=== PATIENT | female | born 1995 | race Two or more races ===

== ENCOUNTER 2016-08-21 07:30 | Emergency (ER) | payer BC ==
[2016-08-21 08:41] LABS: ABSOLUTE EOSINOPHILS # (AUTO) 0.1 10^3/uL (0.0-0.6); ABSOLUTE LYMPHOCYTES (AUTO) 1.3 10^3/uL (0.5-4.7); ABSOLUTE MONOCYTES (AUTO) 0.5 10^3/uL (0.1-1.4); ABSOLUTE NEUT (AUTO) 3.2 10^3/uL (1.7-8.2); BASOPHILS % (AUTO) 0.5 % (0-2); EOSINOPHILS % (AUTO) 2.4 % (0-6); HEMOGLOBIN 12.2 g/dL (12.0-15.5); HGB HCT DIFFERENCE -0.4; LYMPHOCYTES % (AUTO) 25.7 % (13-45); MEAN CORPUSCULAR HEMOGLOBIN 28.3 pg (27.0-33.4); MEAN CORPUSCULAR VOLUME 86 fl (80-97); MONOCYTES % (AUTO) 9.2 % (3-13); RED BLOOD COUNT 4.32 10^6/uL (3.72-5.28); SEGMENTED NEUTROPHILS % (AUTO) 62.2 % (42-78); WHITE BLOOD COUNT 5.1 10^3/uL (4.0-10.5)
[2016-08-21 09:13] LABS: ALANINE AMINOTRANSFERASE 24 U/L (9-52); ALBUMIN 4.1 g/dL (3.5-5.0); ALKALINE PHOSPHATASE 63 U/L (38-126); ANION GAP 11 (5-19); ASPARTATE AMINO TRANSFERASE 19 U/L (14-36); BILIRUBIN,TOTAL 0.5 mg/dL (0.2-1.3); BLOOD UREA NITROGEN 13 mg/dL (7-20); CALCIUM 9.1 mg/dL (8.4-10.2); CARBON DIOXIDE 27 mmol/L (22-30); CHLORIDE 103 mmol/L (98-107); CREATININE RESULT 0.51 mg/dL (0.52-1.25); GLUCOSE 93 mg/dL (75-110); POTASSIUM 3.8 mmol/L (3.6-5.0); SODIUM 141.3 mmol/L (137-145); TOTAL PROTEIN 7.1 g/dL (6.3-8.2)
[2016-08-21 09:14] LABS: ALCOHOL < 10 mg/dL (NONE DETECTED)
[2016-08-21 09:41] LABS: URINE BARBITURATES SCREEN NEGATIVE; URINE METHADONE SCREEN NEGATIVE; URINE OPIATES LOW NEGATIVE; URINE PHENCYCLIDINE SCREEN NEGATIVE
[2016-08-21 10:39] LABS: APPEARANCE,URINE CLEAR; BILIRUBIN,URINE NEGATIVE (NEGATIVE); GLUCOSE, URINE NEGATIVE (NEGATIVE); KETONES,URINE NEGATIVE (NEGATIVE); LEUKOCYTE ESTERASE,URINE NEGATIVE (NEGATIVE); NITRITE,URINE NEGATIVE (NEGATIVE); PROTEIN,URINE NEGATIVE (NEGATIVE); UROBILINOGEN,URINE NEGATIVE mg/dL (<2.0)
--- NOTE | 2016-08-21 12:08 | ER Document Report ---
ED Psych Disorder / Suicide <RYAN SHOEMAKER - Last Filed: 08/21/16 13:14> - General Mode of Arrival: Ambulatory Information source: Patient TRAVEL OUTSIDE OF THE U.S[place] IN LAST 30 DAYS: No - HPI Patient complains to provider of: Suicidal ideation Onset: This morning Suicide Risk Factors: Depressed. No: Bipolar Associated symptoms: Other - see notes above <VIN BRITT - Last Filed: 08/21/16 15:58> - General Chief Complaint: Suicidal Ideation Stated Complaint: SUICIDAL IDEATION Notes: 20 year old female with history of depression (diagnosed 2009) presents to the ED complaining of having a 'maniac' attack earlier this morning. Patient reports that she has not been diagnosed with bipolar, but might be. Patient does not take medication for her depression, stating that her mom doesn't want her to because it'll make her look "crazy." Patient is "fed up with everything" and states that she was having suicidal thoughts last night, but not currently. Patient's friend helped her to seek help. Patient has a past history of overdosing on Klonopin, Tramadol, and Qysmia (weight loss drug). (VIN BRITT) - Related Data Allergies/Adverse Reactions: No Known Allergies Allergy (Unverified 08/21/16 07:40) Home Medications: Current Home Medications No Home Medications 08/21/16 [History] Past Medical History - General Information source: Patient - Social History Smoking Status: Never Smoker Frequency of alcohol use: Occasional Drug Abuse: None Family History: Reviewed & Not Pertinent Patient has suicidal ideation: Yes Patient has homicidal ideation: No Renal/ Medical History: Denies: Hx Peritoneal Dialysis Psychiatric Medical History: Reports: Hx Depression <VIN BRITT - Last Filed: 08/21/16 15:58> Review of Systems - Review of Systems Constitutional: No symptoms reported EENT: No symptoms reported Cardiovascular: No symptoms reported Respiratory: No symptoms reported Gastrointestinal: No symptoms reported Genitourinary: No symptoms reported Female Genitourinary: No symptoms reported Musculoskeletal: No symptoms reported Skin: No symptoms reported Hematologic/Lymphatic: No symptoms reported Neurological/Psychological: See HPI, Suicidal ideation - last night, Other - ' manic episode' -: Yes All other systems reviewed and negative <VIN BRITT - Last Filed: 08/21/16 15:58> Physical Exam - General General appearance: Alert In distress: None - HEENT Head: Normocephalic, Atraumatic Eyes: Normal Extraocular movements intact: Yes Pupils: PERRL - Respiratory Respiratory status: No respiratory distress Breath sounds: Normal - Cardiovascular Rhythm: Regular Heart sounds: Normal auscultation - Abdominal Inspection: Normal Distension: No distension Tenderness: Nontender - Back Back: Normal - Extremities General upper extremity: Normal inspection, Normal ROM General lower extremity: Normal inspection, Normal ROM - Neurological Neuro grossly intact: Yes Cognition: Normal Orientation: AAOx4 [place] Coma Scale Eye Opening: Spontaneous [place] Coma Scale Verbal: Oriented [place] Coma Scale Motor: Obeys Commands [place] Coma Scale Total: 15 Speech: Normal - Psychological Associated symptoms: Normal affect, Normal mood - Skin Skin Temperature: Warm Skin Moisture: Dry Skin Color: Normal <VIN BRITT - Last Filed: 08/21/16 15:58> - Vital signs Vitals: Temp Pulse Resp BP Pulse Ox 98.3 F 88 20 105/70 100 08/21/16 07:36 08/21/16 07:36 08/21/16 07:36 08/21/16 07:36 08/21/16 07:36 Course - Laboratory Result Diagrams: 08/21/16 08:18 08/21/16 08:18 <RYAN SHOEMAKER - Last Filed: 08/21/16 13:14> - Laboratory Result Diagrams: 08/21/16 08:18 08/21/16 08:18 <VIN BRITT - Last Filed: 08/21/16 15:58> - Re-evaluation Re-evalutation: 08/21/16 12:09 Patient presents a month spell with a friend with a chief complaint of history of major depression and anxiety. She says she's felt like that since she was a teenager but her mom didn't want undergone any medication That would make her look bad. Asked her she seen anyone for evaluation or helps and she's been 18 she said no. She's been talking to a friend lately and her friend told her that she should come to the emergency department and get connected and get in with this, just get on some medication for her depression. She said she was thinking of wanting to harm herself last night and she has in the past that she's taken extra diet pills. Currently she denies harming herself or taking any additional medication. She right this moment denies being suicidal or homicidal. Denies any history of substance abuse. 08/21/16 13:13 She was evaluated by the psychiatric team and found to be stable not suicidal or homicidal. Patient states that she recently was an affair with a man and this is making her increased anxious. The behavioral health team gave her information to follow up as an outpatient as she presents now threat to herself or others at this time. (RYAN SHOEMAKER) - Vital Signs Vital signs: Temp Pulse Resp BP Pulse Ox 97.8 F 83 16 112/67 100 08/21/16 13:26 08/21/16 13:26 08/21/16 13:26 08/21/16 13:26 08/21/16 13:26 - Laboratory Laboratory results interpreted by me: 08/21/16 08:18 Creatinine 0.51 L Salicylates < 1.0 L Acetaminophen < 10 L Discharge <RYAN SHOEMAKER - Last Filed: 08/21/16 13:14> <VIN BRITT - Last Filed: 08/21/16 15:58> - Discharge Clinical Impression: Anxiety Depression Qualifiers: Depression Type: unspecified Qualified Code(s): F32.9 - Major depressive disorder, single episode, unspecified Condition: Stable Disposition: HOME, SELF-CARE Additional Instructions: Depression/anxiety Your evaluation reveals that you have mental depression. While symptoms may be vague, they often include disturbance of sleep, fatigue, loss of appetite , and general loss of interest in life. While depression may be a side effect of drugs, or a reaction to a major change in your life, many cases have no known cause. If depression is acute, and related to a major loss in your life, you can expect it to clear completely with time. If you have been depressed a long time , are prone to repeated bouts of depression or low mood, or have been thinking of suicide, get help. Depression can be treated with anti-depressant medication and counselling. Long-term depression will often take a few weeks to clear, even with appropriate medication. Follow-up care is important. Contact your physician, the hospital emergency center, crisis line, or your counsellor if you are losing control or having self-destructive thoughts. The mental health provider that site here in the emergency department gave you instructions for follow-up to be assessed from an outpatient standpoint return for increasing worsening or new symptoms Forms: Return to Work Scribe Attestation: 08/21/16 13:13 I personally performed the services described in the documentation reviewed the documentation recorded by my scribe in my presence and it accurately and completely records my words and actions (RYAN SHOEMAKER) Scribe Documentation - Scribe Written by Babatunde:: Babatunde Olguin, 08/21/2016 1414 acting as scribe for :: Alex <VIN BRITT - Last Filed: 08/21/16 15:58>
[2016-08-21 13:28] VITALS: BP 112/67
--- NOTE | 2016-08-22 17:04 | EKG REPORT ---
SEVERITY:- BORDERLINE ECG - SINUS RHYTHM PROBABLE LEFT ATRIAL ABNORMALITY : Confirmed by: Carlita Ramirez MD 22-Aug-2016 17:02:53
== END 2016-08-21 13:32 | disposition home or self-care (01) ==
LOC: ER 07:30
DX: F41.9 Anxiety disorder, unspecified (principal); F32.9 Major depressive disorder, single episode, unspecified; Z79.899 Other long term (current) drug therapy
CPT/HCPCS: 36415; 80053; 80307; 81001; 85025; 93005; 93010; 99284

== ENCOUNTER 2016-09-14 19:12 | Emergency (ER) | payer OTHER, BC ==
--- NOTE | 2016-09-14 20:17 | ER Document Report ---
ED Medical Screen (RME) - General Chief Complaint: Head Injury with LOC Stated Complaint: KNEE/ANKLE/HIP INJURY WORK RELATED Time Seen by Provider: 09/14/16 20:12 Mode of Arrival: Wheelchair Information source: Patient Notes: Patient is a 20-year-old female who presents to the ER today after head injury, she was sitting on the floor at work [place] style A whole row of metal locker spell on her head. She states that she does not know if she lost consciousness or not, however she keeps "popping out" going in and out of consciousness and coworker who brought her states that she did not remember the incident and she had to tell her what happened. Patient has had some nausea but no vomiting since, she denies any blurred vision. She is also complaining of some right ankle pain. TRAVEL OUTSIDE OF THE [place] IN LAST 30 DAYS: No - Related Data Allergies/Adverse Reactions: No Known Allergies Allergy (Unverified 08/21/16 07:40) Past Medical History - General Information source: Patient Renal/ Medical History: Denies: Hx Peritoneal Dialysis Psychiatric Medical History: Reports: Hx Depression Review of Systems - Review of Systems Musculoskeletal: See HPI Neurological/Psychological: See HPI Physical Exam - Notes Notes: PHYSICAL EXAMINATION: GENERAL: Well-appearing, smiling and in no acute distress. EXTREMITIES: Mildly tender over lateral malleolus of the right ankle, limping, no pitting edema. No cyanosis. NEUROLOGICAL: Cranial nerves grossly intact. Normal sensory/motor exams.
--- NOTE | 2016-09-14 22:56 | ER Document Report ---
ED General - General Chief Complaint: Ankle Injury Stated Complaint: KNEE/ANKLE/HIP INJURY WORK RELATED Time Seen by Provider: 09/14/16 20:12 Mode of Arrival: Wheelchair Information source: Patient Notes: Patient is a 20-year-old female who presents to the ER today after head injury, she was sitting on the floor at work [place] style A whole row of metal locker spell on her head. She states that she does not know if she lost consciousness or not, however she keeps "popping out" going in and out of consciousness and coworker who brought her states that she did not remember the incident and she had to tell her what happened. Patient has had some nausea but no vomiting since, she denies any blurred vision. She is also complaining of some right ankle pain. TRAVEL OUTSIDE OF THE [place] IN LAST 30 DAYS: No - Related Data Allergies/Adverse Reactions: No Known Allergies Allergy (Verified 09/14/16 23:02) Past Medical History - General Information source: Patient - Social History Smoking Status: Unknown if Ever Smoked Family History: Reviewed & Not Pertinent Renal/ Medical History: Denies: Hx Peritoneal Dialysis Psychiatric Medical History: Reports: Hx Depression Physical Exam - Vital signs Vitals: Temp Pulse Resp BP Pulse Ox 98.3 F 87 20 123/72 100 09/14/16 23:07 09/14/16 23:07 09/14/16 23:07 09/14/16 23:07 09/14/16 23:07 - Notes Notes: PHYSICAL EXAMINATION: GENERAL: Well-appearing and in no acute distress. HEAD: Atraumatic, normocephalic. EYES: Pupils equal round and reactive to light, extraocular movements intact, sclera anicteric, conjunctiva are normal. ENT: ear canals without erythema or foreign body, TMs pearly hartman with good bony landmarks, nares patent, oropharynx clear without exudates. Moist mucous membranes. NECK: Normal range of motion, supple without lymphadenopathy LUNGS: CTAB and equal. No wheezes rales or rhonchi. HEART: Regular rate and rhythm without murmurs ABDOMEN: Soft, no tenderness. No guarding, no rebound BACK: no vertebral tenderness, normal ROM EXTREMITIES: Mildly tender over lateral malleolus of the right ankle, limping, no pitting edema. No cyanosis. NEUROLOGICAL: Cranial nerves grossly intact. Normal sensory/motor exams. PSYCH: Normal mood, normal affect. SKIN: Warm, Dry, normal turgor, no rashes or lesions noted Course - Re-evaluation Re-evalutation: 09/14/16 23:04 CT of the head and right ankle x-ray negative for any acute pathology. - Vital Signs Vital signs: Temp Pulse Resp BP Pulse Ox 98.3 F 87 20 123/72 100 09/14/16 23:07 09/14/16 23:07 09/14/16 23:07 09/14/16 23:07 09/14/16 23:07 Discharge - Discharge Clinical Impression: Ankle injury, Injury of head Condition: Stable Disposition: HOME, SELF-CARE Instructions: Head Injury Precautions ([facility]), Concussion ([facility]), Sprained Ankle ( [facility]) Additional Instructions: Return immediately for any new or worsening symptoms. Follow up with primary care provider, call tomorrow to make followup appointment. Prescriptions: Hydrocodone/Acetaminophen [[place] 5-325 mg Tablet] 1 tab PO Q4 PRN #12 tablet PRN Reason: Forms: Return to Work
[2016-09-14 23:08] VITALS: BP 123/72
== END 2016-09-14 23:06 | disposition home or self-care (01) ==
LOC: ER 19:12
DX: S99.911A Unspecified injury of right ankle, initial encounter (principal); S09.90XA Unspecified injury of head, initial encounter; W22.8XXA Striking against or struck by other objects, initial encounter
CPT/HCPCS: 70450; 81025; 99284

== ENCOUNTER → 2017-02-14 | Outpatient (CLI) | payer BC, OTHER ==
--- NOTE | 2017-02-14 12:54 | RADIOLOGY REPORT (SQ) ---
EXAM DESCRIPTION: LUMBAR SPINE COMPLETE COMPLETED DATE/TIME: 02/14/2017 12:23 pm REASON FOR STUDY: LOW BACK PAIN M54.5 LOW BACK PAIN COMPARISON: None. NUMBER OF VIEWS: Five views including obliques. TECHNIQUE: AP, lateral, oblique, and sacral radiographic images acquired of the lumbar spine. LIMITATIONS: None. FINDINGS: MINERALIZATION: Normal. SEGMENTATION: Normal. No transitional anatomy. ALIGNMENT: Normal. VERTEBRAE: Maintained height. No fracture or worrisome bone lesion. DISCS: Preserved height. No significant osteophytes or end plate irregularity. POSTERIOR ELEMENTS: Pedicles and facets are intact. No pars defect or posterior arch defects. HARDWARE: None in the spine. PARASPINAL SOFT TISSUES: Normal. PELVIS: Intact as visualized. No fractures or worrisome bone lesions. SI joints intact. OTHER: No other significant finding. IMPRESSION: NORMAL 5 VIEW LUMBAR SPINE. TECHNICAL DOCUMENTATION: JOB ID: [id number] [employer]- All Rights Reserved
== END ==
LOC: OD 12:06
PROVIDERS: ATTEND Physician Assistant
DX: M54.5 Low back pain (principal)
CPT/HCPCS: 72110

== ENCOUNTER 2017-03-23 20:35 | Emergency (ER) | payer BC ==
[2017-03-23 21:14] LABS: ABSOLUTE EOSINOPHILS # (AUTO) 0.2 10^3/uL (0.0-0.6); ABSOLUTE LYMPHOCYTES (AUTO) 2.5 10^3/uL (0.5-4.7); ABSOLUTE MONOCYTES (AUTO) 0.7 10^3/uL (0.1-1.4); BASOPHILS % (AUTO) 0.3 % (0-2); EOSINOPHILS % (AUTO) 1.7 % (0-6); HEMATOCRIT 37.7 % (36.0-47.0); HEMOGLOBIN 12.4 g/dL (12.0-15.5); HGB HCT DIFFERENCE -0.5; LYMPHOCYTES % (AUTO) 26.8 % (13-45); MEAN CORPUSCULAR HEMOGLOBIN 27.6 pg (27.0-33.4); MEAN CORPUSCULAR HGB CONC 32.9 g/dL (32.0-36.0); MEAN CORPUSCULAR VOLUME 84 fl (80-97); MONOCYTES % (AUTO) 7.6 % (3-13); RED CELL DISTRIBUTION WIDTH 13.6 % (11.5-14.0); SEGMENTED NEUTROPHILS % (AUTO) 63.6 % (42-78); WHITE BLOOD COUNT 9.4 10^3/uL (4.0-10.5)
[2017-03-23 21:32] LABS: ALANINE AMINOTRANSFERASE 32 U/L (9-52); ALKALINE PHOSPHATASE 65 U/L (38-126); ANION GAP 13 (5-19); ASPARTATE AMINO TRANSFERASE 20 U/L (14-36); BILIRUBIN,DIRECT 0.3 mg/dL (0.0-0.4); BILIRUBIN,TOTAL 0.3 mg/dL (0.2-1.3); BLOOD UREA NITROGEN 19 mg/dL (7-20); CALCIUM 9.3 mg/dL (8.4-10.2); CARBON DIOXIDE 24 mmol/L (22-30); CHLORIDE 105 mmol/L (98-107); CREATININE RESULT 0.55 mg/dL (0.52-1.25); GLUCOSE 87 mg/dL (75-110); POTASSIUM 4.1 mmol/L (3.6-5.0); SODIUM 142.4 mmol/L (137-145); TOTAL PROTEIN 7.2 g/dL (6.3-8.2)
[2017-03-23 21:34] LABS: ALCOHOL < 10 mg/dL (NONE DETECTED)
--- NOTE | 2017-03-23 21:40 | ER Document Report ---
ED General - General Chief Complaint: Possible Overdose Stated Complaint: POSSIBLE OVERDOSE Time Seen by Provider: 03/23/17 20:36 Notes: Patient is a 21-year-old female with a past medical history of PTSD, depression , anxiety, who presents after attempting to overdose on her sertraline. Patient took approximately 7-8 tablets of an unknown strength of sertraline several hours prior to arrival and apparent suicide attempt. Patient states that she wanted to go to sleep and not wake up. She states that she has been having passive suicidal ideation for the past several months but it became more active in the last several days. She has seen a psychiatrist regarding his concerns but has not had any recent changes to her management. She denies any additional coingestions today. At the time of my assessment patient states that she is overall glad that she was not successful in her suicide attempt today. She denies any acute medical concerns. She denies any recent life events that have triggered this suicide attempt. TRAVEL OUTSIDE OF THE [place] IN LAST 30 DAYS: No - Related Data Allergies/Adverse Reactions: No Known Allergies Allergy (Verified 09/14/16 23:02) Past Medical History - General Information source: Patient - Social History Smoking Status: Never Smoker Frequency of alcohol use: None Drug Abuse: None Family History: Reviewed & Not Pertinent Renal/ Medical History: Denies: Hx Peritoneal Dialysis Psychiatric Medical History: Reports: Hx Depression Review of Systems - Review of Systems Notes: Constitutional: Negative for fever. HENT: Negative for sore throat. Eyes: Negative for visual changes. Cardiovascular: Negative for chest pain. Respiratory: Negative for shortness of breath. Gastrointestinal: Negative for abdominal pain, vomiting or diarrhea. Genitourinary: Negative for dysuria. Musculoskeletal: Negative for back pain. Skin: Negative for rash. Neurological: Negative for headaches, weakness or numbness. 10 point ROS negative except as marked above and in HPI. Physical Exam - Vital signs Vitals: Pulse Ox 99 03/23/17 21:10 Interpretation: Normal Notes: PHYSICAL EXAMINATION: GENERAL: Well-appearing, well-nourished and in no acute distress. HEAD: Atraumatic, normocephalic. EYES: Pupils equal round and reactive to light, extraocular movements intact, sclera anicteric, conjunctiva are normal. ENT: nares patent, oropharynx clear without exudates. Moist mucous membranes. NECK: Normal range of motion, supple without lymphadenopathy LUNGS: Breath sounds clear to auscultation bilaterally and equal. No wheezes rales or rhonchi. HEART: Regular rate and rhythm without murmurs ABDOMEN: Soft, nontender, normoactive bowel sounds. No guarding, no rebound. No masses appreciated. EXTREMITIES: Normal range of motion, no pitting or edema. No cyanosis. NEUROLOGICAL: No focal neurological deficits. Moves all extremities spontaneously and on command. PSYCH: Normal mood, normal affect. SKIN: Warm, Dry, normal turgor, no rashes or lesions noted. Course - Re-evaluation Re-evalutation: 03/23/17 21:39 Patient presents with suicidal ideation and an attempt on her life tonight by overdosing on Zoloft. Patient seems somewhat aloof about her presentation, does not appear particularly concerned about her attempt tonight and states "I wanted to go to sleep and not wake up". She states that she has had some passive suicidal ideation for the past several months and it became much more acute in the last several days. She denies any acute medical complaints. Medical poison control was contacted and recommends only clinical monitoring without any additional specific recommendations regarding her Zoloft overdose. Medical screening laboratories will be obtained. Her medical screening exam is unremarkable. 03/23/17 23:46 Patient has remained completely asymptomatic. She is medically cleared for psychiatric evaluation. Medical screening labs unremarkable. - Vital Signs Vital signs: Temp Pulse Resp BP Pulse Ox 23 H 102/70 95 03/23/17 22:20 03/23/17 22:20 03/23/17 22:20 - Laboratory Result Diagrams: 03/23/17 21:05 03/23/17 21:05 Laboratory results interpreted by me: 03/23/17 03/23/17 21:05 22:15 Urine Blood SMALL H Salicylates < 1.0 L Acetaminophen < 10 L Discharge - Discharge Clinical Impression: Anxiety, Suicidal ideation, Suicide attempt Depression Qualifiers: Depression Type: unspecified Qualified Code(s): F32.9 - Major depressive disorder, single episode, unspecified
[2017-03-23 22:46] LABS: APPEARANCE,URINE SLIGHTLY-CLOUDY; BILIRUBIN,URINE NEGATIVE (NEGATIVE); GLUCOSE, URINE NEGATIVE (NEGATIVE); KETONES,URINE NEGATIVE (NEGATIVE); LEUKOCYTE ESTERASE,URINE NEGATIVE (NEGATIVE); NITRITE,URINE NEGATIVE (NEGATIVE); PROTEIN,URINE NEGATIVE (NEGATIVE); UROBILINOGEN,URINE NEGATIVE mg/dL (<2.0)
[2017-03-23 23:00] LABS: URINE METHADONE SCREEN NEGATIVE; URINE OPIATES LOW NEGATIVE; URINE PHENCYCLIDINE SCREEN NEGATIVE
[2017-03-23 23:23] LABS: URINE BARBITURATES SCREEN NEGATIVE
[2017-03-24 08:26] VITALS: BP 93/59
--- NOTE | 2017-03-24 09:53 | ER Document Report ---
Doctor's Note Notes: 03/24/17 09:51 Rounds: Chart reviewed and patient interviewed. Immediately, patient says that she does not take an overdose, but when questioned, she acknowledges taking between 4 and 7 pills, which is more than the prescribed 1 pill at a time. Patient denies feeling suicidal at this time. Vital signs are all essentially normal except for her blood pressure of 93/59, but she had a couple of other low blood pressure recordings during her stay. All of her labs are normal and she is obviously not in shock. Lab studies were all essentially normal. Patient appears to be medically stable for transfer or discharge. Mental health has assessed the patient feels she can be discharged to follow-up at her next appointed time with her counselor on April 01. Dominik Sherman MD
--- NOTE | 2017-03-24 11:31 | PSYCHOLOGICAL NOTE ---
Psych Note - Psych Note Psych Note: Patient is a 21 year old female who presented to the ED last evening via friend after overdosing on 7-8 Zoloft. Patient reported she got overwhelmed yesterday with job stress, falling behind in bills, and her dog tore up her apartment while she was at work yesterday. She admitted she took more pills than what was prescribed. She stated she took 4-7 pills. She identified she came back to work from her lunch break, was feeling terrible, and went to her friend/coworker to tell her what she had done. She stated the friend/coworker immediately brought her to the ED. Patient endorsed regret and commented "I had instant regret which is why I told my friend." She reported after her July 2016 ED visit she went to Dr. Copeland and then switched to Dr. Mcgrath. She further stated she has seen a psychiatrist at [facility] once, this is where the Zoloft came from, and she is scheduled to see the psychiatrist again on 04/01/17 at 1100. She denied previous MH hospitalizations. She denied previous OD attempts. When confronted about July 2016 visit documentation that noted previous OD attempts with Klonopin, Tramadol, and Qysmia she stated it was incorrect. She reported she had said her father had given her Klonopin and Tramadol when she was younger and she had been taking the Qysmia for weight loss until her insurance would no longer cover it. She was adamant the information was related to past medication history. Patient was alert and oriented to person, place, time and situation. Mood was euthymic with congruent affect. She denied current SI/HI, admitted to being overwhelmed yesterday and taking 4-7 Zoloft then telling a friend, and denied previous SI. She talked about wanting to get home to her dogs and make them their Thanksgiving dinner of Chicken and Carrots. She mentioned her family is coming to visit from [place] next week. 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 She did not appear to be responding to internal stimuli AEB fair eye contact, staying on topic, answering questions appropriately when addressed and carrying on dialogue conversation. Thought processes were linear and organized. Conversational speech was WNL for rate, tone and prosody. Intellectual abilities are estimated to be average. Insight, judgment and impulse control are fair AEB processing through her crisis to include stresses and triggers. Patient gave verbal consent to obtain collateral and include friend, Zoe ), in plan of care. Friend stated she has known patient for 2 months. She stated in that time she has been worried about patient and described patient 's moods as "sporadic." She stated patient seems to have "highs and lows where small things trigger her." She stated the day before yesterday patient made a vague statement about wanting to sleep and not wake up. She confirmed patient told her last night she had taken pills but did not want to seek help. She stated about a month ago patient was getting off of Lexapro and told friend she took a bunch but threw them up. Friend noted she had been texting back and forth with patient's mother who is aware of what is going on. Contacted patient's mother, Bridger ([phone]), number provided by patient's friend and was listed on the list of numbers patient wrote down. Mother denied previous SI attempts. She stated previous diagnoses were ADHD and learning disorder (Math disability). She stated patient had been on an IEP in high school and she did graduate. She stated her and patient speak over the phone regularly and earlier yesterday patient seemed fine and happy AEB talked about Thanksgiving and mother's upcoming visit. Mother denied previous MH hospitalizations. Mother knew about work stress and the dog destroying the home. She stated this is patient's first time living alone and on her own. She stated she feels patient's "anxiety took over which is why she took more pills than what is prescribed." She noted a maternal family history (grandmother) of Bipolar and Schizophrenia, as well as paternal (father) having a personality disorder and moodiness. She was also aware of patient having been to a psychiatrist and having a follow up appointment on 04/01/17. She confirmed she will be in [place] visiting on 04/03/17. Diagnosis: 311 (F32.9) Unspecified Depressive Disorder Impression/Plan: Patient is psychiatrically cleared. Patient does not meet [place] 122C IVC criteria. She denied current SI/HI, is glad she is alive, is looking forward to going home to her dogs today, starting a new shift at work Tuesday, and her family coming to visit from [place] next week (future oriented thinking). Recommendation to discharge patient home with friend, Zoe. Friend has agreed to check on patient in person and via telephone if cannot in person ( especially the next 2 days), as well have control over medications even over the counter ones. They talk regularly anyway. Mother also aware of plan of care which included friend has natural support, going to follow up appointment on 04/01/17, and requesting individual therapy. Patient will follow up with her psychiatrist at her already scheduled appointment on 04/01/17 at 1100. She stated she would inform the doctor of this crisis and they are to discuss including therapy. Patient provided with outpatient resource list with emphasis on both [facility] numbers. Also documented her upcoming appointment date and time she provided. Consulted with Dr. Knight regarding the management and care of patient. ED Physician in agreement with recommendations.
--- NOTE | 2017-03-24 15:46 | EKG REPORT ---
SEVERITY:- OTHERWISE NORMAL ECG - SINUS TACHYCARDIA : Confirmed by: Carlita Ramirez MD 24-Mar-2017 15:45:32
== END 2017-03-24 10:36 | disposition home or self-care (01) ==
LOC: ER 20:35
DX: R45.851 Suicidal ideations (principal); F43.10 Post-traumatic stress disorder, unspecified; F32.9 Major depressive disorder, single episode, unspecified; F41.9 Anxiety disorder, unspecified
CPT/HCPCS: 36415; 80053; 80307; 81001; 84703; 85025; 93005; 93010; 99285

== ENCOUNTER 2017-06-26 20:16 | Emergency (ER) | payer BC ==
[2017-06-26] MEDS ORDERED: SULFAMETHOXAZOLE/TRIMETHOPRIM 800-160 MG TABLET PO ONE (21:38)
[2017-06-26] MEDS ORDERED: CEPHALEXIN 500 MG CAPSULE PO ONE (21:38)
--- NOTE | 2017-06-26 21:41 | ER Document Report ---
ED General - General Chief Complaint: Possible tattoo infection Stated Complaint: POSSIBLE TATTOO INFECTION Time Seen by Provider: 06/26/17 21:23 Notes: Patient is a 21-year-old female with a past medical history presents with concerns of an infection of her right forearm tattoo that she had done approximately 1 week ago. She states that over the past 2-3 days the most superior portion of the tattoo has become increasingly erythematous, painful and has had intermittent drainage of clear to purulent fluid. Describes there is having a dull, aching pain. Touching the area worsens the pain. Nothing improves the pain. She denies a history of similar symptoms in the past. She has not seen a primary doctor regarding today's concerns. She denies any fever or constitutional symptoms. TRAVEL OUTSIDE OF THE [place] IN LAST 30 DAYS: No - Related Data Allergies/Adverse Reactions: No Known Allergies Allergy (Verified 09/14/16 23:02) Past Medical History - General Information source: Patient - Social History Smoking Status: Never Smoker Frequency of alcohol use: None Drug Abuse: None Lives with: Spouse/Significant other Family History: Reviewed & Not Pertinent Renal/ Medical History: Denies: Hx Peritoneal Dialysis Psychiatric Medical History: Reports: Hx Depression Review of Systems - Review of Systems Notes: Constitutional: Negative for fever. HENT: Negative for sore throat. Eyes: Negative for visual changes. Cardiovascular: Negative for chest pain. Respiratory: Negative for shortness of breath. Gastrointestinal: Negative for abdominal pain, vomiting or diarrhea. Genitourinary: Negative for dysuria. Musculoskeletal: Negative for back pain. Skin: Positive for rash. Neurological: Negative for headaches, weakness or numbness. 10 point ROS negative except as marked above and in HPI. Physical Exam - Vital signs Vitals: Temp Pulse BP Pulse Ox 98.5 F 95 114/75 98 06/26/17 20:54 06/26/17 20:54 06/26/17 20:54 06/26/17 20:54 Interpretation: Normal Notes: PHYSICAL EXAMINATION: GENERAL: Well-appearing, well-nourished and in no acute distress. HEAD: Atraumatic, normocephalic. EYES: Pupils equal round and reactive to light, extraocular movements intact, sclera anicteric, conjunctiva are normal. ENT: nares patent, oropharynx clear without exudates. Moist mucous membranes. NECK: Normal range of motion, supple without lymphadenopathy LUNGS: Breath sounds clear to auscultation bilaterally and equal. No wheezes rales or rhonchi. HEART: Regular rate and rhythm without murmurs ABDOMEN: Soft, nontender, normoactive bowel sounds. No guarding, no rebound. No masses appreciated. EXTREMITIES: Normal range of motion, no pitting or edema. No cyanosis. NEUROLOGICAL: No focal neurological deficits. Moves all extremities spontaneously and on command. PSYCH: Normal mood, normal affect. SKIN: Warm, Dry, normal turgor, there is a 1 x 2 cm area of erythema extending from the most superior portion of a forearm tattoo on the right forearm with a small amount of serous drainage from an open wound Course - Re-evaluation Re-evalutation: 06/26/17 21:37 Patient presents with symptoms most consistent with an acute cellulitis from an acute infection of a tattoo that was recently completed. Vitals within normal limits. Patient does not meet sepsis criteria is overall very well in appearance. Exam and history are not consistent with DVT. Patient will be started on coverage for both staph and strep. Patient is otherwise very well in appearance and is an appropriate candidate for outpatient oral antibiotic therapy. At this time will discharge with return precautions and follow-up recommendations. Verbal discharge instructions given a the bedside and opportunity for questions given. Medication warnings reviewed. Patient is in agreement with this plan and has verbalized understanding of return precautions and the need for primary care follow-up in the next 24-72 hours. - Vital Signs Vital signs: Temp Pulse Resp BP Pulse Ox 97.8 F 85 20 110/68 100 06/26/17 21:57 06/26/17 21:57 06/26/17 21:57 06/26/17 21:57 06/26/17 21:57 Discharge - Discharge Clinical Impression: Tattoo infection, Cellulitis of forearm, right Condition: Good Disposition: HOME, SELF-CARE Additional Instructions: The rash is likely due to infection of your skin. You need to take the antibiotics as prescribed. Do not stop even if the rash goes away until you have completed all the antibiotics. You should also return if you develop fevers with temperature greater than 101, spreading of the redness, persistent vomiting, worsening pain, or have any other symptoms that are concerning to you. Prescriptions: Cephalexin Monohydrate [Keflex 500 mg Capsule] 500 mg PO Q6H 7 Days capsule Sulfamethoxazole/Trimethoprim [Bactrim Ds Tablet] 1 tab PO BID #14 tablet
[2017-06-26 22:16] VITALS: BP 110/68
== END 2017-06-26 21:58 | disposition home or self-care (01) ==
LOC: ER 20:16
DX: L03.113 Cellulitis of right upper limb (principal)
CPT/HCPCS: 99283

== ENCOUNTER 2017-06-28 22:37 | Emergency (ER) | payer BC ==
[2017-06-28 22:45] VITALS: BP 114/64
--- NOTE | 2017-06-28 23:44 | ER Document Report ---
HPI - HPI Patient complains to provider of: recheck of cellulitis Onset: Other - 4-5 days Onset/Duration: Gradual, Worse Quality of pain: Burning, Sharp, Throbbing Severity: Moderate Pain Level: 3 Associated Symptoms: Other - Patient states she has increased infection to the tattoo for which she was seen on June 26 Exacerbated by: Movement Relieved by: Denies Similar symptoms previously: Yes Recently seen / treated by doctor: Yes - ROS ROS below otherwise negative: Yes - CONSTITUTIONAL Constitutional: DENIES: Fever, Chills - EENT EENT: DENIES: Sore Throat, Ear Pain, Nasal Drainage-Clear, Nasal Drainage- Purulent, Congestion, Eye problems - NEURO Neurology: DENIES: Headache, Weakness, Vision blurred, Dizzinesss / Vertigo - CARDIOVASCULAR Cardiovascular: DENIES: Chest pain - RESPIRATORY Respiratory: DENIES: Trouble Breathing, Coughing - GASTROINTESTINAL Gastrointestinal: DENIES: Abdominal Pain, Nausea, Patient vomiting, Diarrhea, Constipation, Black / Bloody Stools - URINARY Urinary: DENIES: Dysuria, Urgency, Frequency - REPRODUCTIVE Reproductive: DENIES: :, Postmenopausal, Abnormal bleeding / discharge - MUSCULOSKELETAL Musculoskeletal: REPORTS: Extremity pain - Right forearm tattoo celluliti. DENIES: Back Pain, Neck Pain, Swelling - DERM Skin Color: Other - Very minimal cellulitis at the proximal aspect of the tattoo no drainage Skin Problems: None Past Medical History - General Information source: Patient - Social History Smoking Status: Never Smoker Cigarette use (# per day): No Chew tobacco use (# tins/day): No Smoking Education Provided: No Frequency of alcohol use: None Drug Abuse: None Lives with: Spouse/Significant other Family History: Reviewed & Not Pertinent Patient has suicidal ideation: No Patient has homicidal ideation: No - Past Medical History Cardiac Medical History: Reports: None Pulmonary Medical History: Reports: None EENT Medical History: Reports: None Neurological Medical History: Reports: None Endocrine Medical History: Reports: None Renal/ Medical History: Reports: None Malignancy Medical History: Reports: None GI Medical History: Reports: None Musculoskeltal Medical History: Reports None Skin Medical History: Reports Hx Cellulitis Psychiatric Medical History: Reports: Hx Bipolar Disorder, Hx Depression Traumatic Medical History: Reports: None Infectious Medical History: Reports: None Surgical Hx: Negative Past Surgical History: Reports: None Vertical Provider Document - CONSTITUTIONAL Agree With Documented VS: Yes Exam Limitations: No Limitations General Appearance: WD/WN, No Apparent Distress - INFECTION CONTROL TRAVEL OUTSIDE OF THE [place] IN LAST 30 DAYS: No - HEENT HEENT: Atraumatic, Normal ENT Exam, Normocephalic, PERRLA - NECK Neck: Normal Inspection, Supple, Thyroid Normal - RESPIRATORY Respiratory: Breath Sounds Normal, No Respiratory Distress, Chest Non-Tender O2 Sat by Pulse Oximetry: 99 - CARDIOVASCULAR Cardiovascular: Regular Rate, Regular Rhythm, No Murmur - BACK Back: Normal Inspection, Abnormal Inspection - MUSCULOSKELETAL/EXTREMETIES Musculoskeletal/Extremeties: MAEW, FROM, Tender - Tenderness to the right forearm cellulitis from a tattoo - NEURO Level of Consciousness: Awake, Alert, Appropriate Motor/Sensory: No Motor Deficit, No Sensory Deficit, No Pronator Drift - DERM Integumentary: negative: Abscess - Small area of cellulitis to the right forearm proximal aspect of the tattoo very minimal Course - Re-evaluation Re-evalutation: 06/29/17 01:57 facilitate seeing this patient on the of this cellulitis to the right forearm. I had him come in and look at the cellulitis to ensure that it was not increasing. He states that it actually was much improved. Patient stated she was only taking the Keflex twice a day. Instructed her to please take up 4 times a day as instructed. Dr. Ga reinforced this instruction. Bacitracin applied to the tattoo and patient was instructed to please clean tattoo with soap and water and apply bacitracin several times a day. Patient to follow-up with her primary doctor or return to the ED for any increase in symptoms. - Vital Signs Vital signs: Temp Pulse Resp BP Pulse Ox 98.6 F 98 16 114/64 99 06/28/17 22:44 06/28/17 22:44 06/28/17 22:44 06/28/17 22:44 06/28/17 22:44 Discharge - Discharge Clinical Impression: Cellulitis of forearm, right Condition: Stable Disposition: HOME, SELF-CARE Additional Instructions: You were seen today for recheck of the infection to your tattoo on your right forearm. Please take your Keflex every 6 hours which is 4 times a day as they were prescribed Please take your Bactrim 2 times a day about every 12 hours as they were prescribed. Antibiotic Ointment Protection Your wounds are such that dressing them is not practical or optional. After cleansing, you should apply a thin coating of antibiotic ointment ( Bacitracin, not Neosporin) to the wounds at least three times daily. This lessens infection risk, and may decrease the amount of scarring. Use a q-tip or dull butter knife, not your finger, to apply this ointment. Any debris or ooze which builds up in the ointment should be gently rubbed off with a sterile gauze pad. Harder crusting may need to be gently scrubbed off with a clean wash cloth with soap and warm water, perhaps applying a warm, wet wash cloth to the wound for ten minutes first. Development of redness, severe itching, or blistering may mean allergy to the ointment. See the doctor. Acetaminophen Acetaminophen may be taken for pain relief or fever control. It's much safer than aspirin, offering a wider range of "safe" dosages. It is safe during . Some brand names are Tylenol, Panadol, Datril, Anacin 3, Tempra, and Liquiprin. Acetaminophen can be repeated every four hours. The following are maximum recommended dosages: WEIGHT Dose Drops Elixir Chewable( 80mg) (LBS.) drprs=droppers tsp=teaspoon 6 40 mg .4 ml (1/2) 6-11 80 mg .8 ml (full) 1/2 tsp 1 tab 12-16 120 mg 1 1/2 drprs 3/4 tsp 1 1/2 tabs 17-23 160 mg 2 drprs 1 tsp 2 tabs 24-30 240 mg 3 drprs 1 1/2 tsp 3 tabs 30-35 320 mg 2 tsp 4 tabs 36-41 360 mg 2 1/4 tsp 4 1 /2 tabs 42-47 400 mg 2 1/2 tsp 5 tabs 48-53 480 mg 3 tsp 6 tabs 54-59 520 mg 3 1/4 tsp 6 1 /2 tabs 60-64 560 mg 3 1/2 tsp 7 tabs 65-70 600 mg 3 3/4 tsp 7 1 /2 tabs 71-76 640 mg 4 tsp 8 tabs 77-82 720 mg 4 1/2 tsp 9 tabs 83-88 800 mg 5 tsp 10 tabs >89 pounds or adults 650 mg to 900 mg Acetaminophen can be repeated every four hours. Maximum daily dose not to exceed 4000 mg. These maximum recommended dosages are slightly higher than the dosages written on the product container, but these dosages are very safe and well below the toxic dosage for acetaminophen. Ibuprofen Ibuprofen is an excellent, safe drug for pain control. In addition, it has potent antiinflammatory effects which are beneficial, especially in the treatment of injuries, arthritis, or tendonitis. It's best to take ibuprofen with food. Persons with ulcer disease or allergy to aspirin should notify their physician of this before taking ibuprofen. Take the medication exactly as prescribed. Don't take additional doses unless instructed to do so by your doctor. If you develop wheezing, shortness of breath, hives, faintness, stomach pain, vomiting, or dark black stools, return for re-evaluation at once. FOLLOW-UP CARE: If you have been referred to a physician for follow-up care, call the physician s office for an appointment as you were instructed or within the next two days. If you experience worsening or a significant change in your symptoms, notify the physician immediately or return to the Emergency Department at any time for re-evaluation. Forms: Return to Work
== END 2017-06-29 00:12 | disposition home or self-care (01) ==
LOC: ER 22:37
DX: L03.113 Cellulitis of right upper limb (principal)
CPT/HCPCS: 99282

== ENCOUNTER 2017-10-05 14:08 | Emergency (ER) | payer BC ==
[2017-10-05 16:22] LABS: APPEARANCE,URINE SLIGHTLY-CLOUDY; BILIRUBIN,URINE NEGATIVE (NEGATIVE); COLOR,URINE YELLOW; GLUCOSE, URINE NEGATIVE (NEGATIVE); KETONES,URINE NEGATIVE (NEGATIVE); LEUKOCYTE ESTERASE,URINE NEGATIVE (NEGATIVE); NITRITE,URINE NEGATIVE (NEGATIVE); PROTEIN,URINE NEGATIVE (NEGATIVE); URINE SPECIFIC GRAVITY 1.031
--- NOTE | 2017-10-05 19:04 | ER Document Report ---
ED General - General Chief Complaint: Vaginal Pain Stated Complaint: VAGINAL/BREAST PAIN Time Seen by Provider: 10/05/17 15:35 Mode of Arrival: Ambulatory Information source: Patient Notes: 21-year-old female with no reported past medical history presents with complaint of 1 week of vaginal pain. Patient states that she has been experiencing vaginal pain for 1 week. She describes the pain as sharp, intermittent. Patient has not tried any medications for this. She denies any prior similar symptoms. Her last menstrual period was January 2017 secondary to Nexplanon. Patient denies any sexual activity. She does report 1 week of vaginal discharge. Patient also complaining of right-sided breast pain that has also been present for 1 week. She describes it as a aching pain. TRAVEL OUTSIDE OF THE [place] IN LAST 30 DAYS: No - HPI Onset: Other Onset/Duration: Gradual Quality of pain: Stabbing Severity: Mild Associated symptoms: denies: Nausea, Vomiting Exacerbated by: Denies Relieved by: Denies Similar symptoms previously: No Recently seen / treated by doctor: No - Related Data Allergies/Adverse Reactions: No Known Allergies Allergy (Verified 10/05/17 14:14) Past Medical History - General Information source: Patient, [facility] - Social History Smoking Status: Never Smoker Chew tobacco use (# tins/day): No Frequency of alcohol use: None Drug Abuse: None Family History: Reviewed & Not Pertinent Patient has suicidal ideation: No Patient has homicidal ideation: No - Medical History Medical History: Negative Renal/ Medical History: Denies: Hx Peritoneal Dialysis Skin Medical History: Reports Hx Cellulitis Psychiatric Medical History: Reports: Hx Bipolar Disorder, Hx Depression Review of Systems - Review of Systems Constitutional: denies: Fever, Weakness EENT: denies: Blurred vision Cardiovascular: denies: Chest pain, Palpitations Respiratory: denies: Short of breath Gastrointestinal: denies: Abdominal pain Genitourinary: denies: Dysuria Female Genitourinary: Irregular period, Vaginal discharge, Vaginal odor Musculoskeletal: No symptoms reported Skin: No symptoms reported Hematologic/Lymphatic: No symptoms reported Neurological/Psychological: denies: Confusion, Lost consciousness, Headaches -: Yes All other systems reviewed and negative Physical Exam - Vital signs Vitals: Temp Pulse Resp BP Pulse Ox 98.8 F 99 16 124/75 97 10/05/17 14:20 10/05/17 14:20 10/05/17 14:20 10/05/17 14:20 10/05/17 14:20 - Notes Notes: PHYSICAL EXAMINATION: GENERAL: Well-appearing, well-nourished and in no acute distress. HEAD: Atraumatic, normocephalic. EYES: Pupils equal round and reactive to light, extraocular movements intact, conjunctiva are normal. ENT: Nares patent, oropharynx clear without exudates. Moist mucous membranes. NECK: Normal range of motion, supple without lymphadenopathy LUNGS: Breath sounds clear to auscultation bilaterally and equal. No wheezes rales or rhonchi. Breast exam performed and without obvious mass, erythema, fluctuance, induration HEART: Regular rate and rhythm without murmurs ABDOMEN: Soft, nontender, nondistended abdomen. No guarding, no rebound. No masses appreciated. Female : Thin white discharge. Patient reports extreme tenderness with touching of her labia. Musculoskeletal: Normal range of motion, no pitting or edema. No cyanosis. NEUROLOGICAL: Cranial nerves grossly intact. Normal speech, normal gait. Normal sensory, motor exams PSYCH: Normal mood, normal affect. SKIN: Warm, Dry, normal turgor, no rashes or lesions noted. Course - Re-evaluation Re-evalutation: 10/06/17 00:02 10/05/17 23:56 Laboratory 10/05/17 10/05/17 10/05/17 16:00 16:00 19:55 Urine Color YELLOW Urine Appearance SLIGHTLY-CLOUDY Urine pH 6.0 Ur Specific [place] 1.031 Urine Protein NEGATIVE Urine Glucose (UA) NEGATIVE Urine Ketones NEGATIVE Urine Blood NEGATIVE Urine Nitrite NEGATIVE Urine Bilirubin NEGATIVE Urine Urobilinogen 2.0 H Ur Leukocyte Esterase NEGATIVE Urine WBC (Auto) 1 Urine RBC (Auto) 1 Squamous Epi Cells Auto 1 Urine Mucus (Auto) MOD Urine Ascorbic Acid NEGATIVE Urine HCG, Qual NEGATIVE Epi Cells (Wet Prep) 3+ EPITHELIALS SEEN Bacteria (Wet Prep) 3+ BACTERIA SEEN Trichomonas (Wet Prep) NO TRICHOMONAS SEEN Vaginal WBC 1+ WBCS SEEN Vaginal RBC FEW RBCS SEEN Vaginal Yeast YEAST SEEN Chlamydia DNA (PCR) NOT DETECTED N.gonorrhoeae DNA (PCR) NOT DETECTED 10/06/17 00:03 21-year-old female with no reported past medical history presents with complaint of 1 week of vaginal pain. Patient states that she has been experiencing vaginal pain for 1 week. She describes the pain as sharp, intermittent. Patient has not tried any medications for this. She denies any prior similar symptoms. Her last menstrual period was January 2017 secondary to Nexplanon. Patient denies any sexual activity. She does report 1 week of vaginal discharge. Patient also complaining of right-sided breast pain that has also been present for 1 week. She describes it as a aching pain. Patient was seen by myself upon arrival. Vital signs were reviewed. Patient is afebrile , normotensive and not hypoxic. Patient does not appear toxic or dehydrated. They are in no acute distress. Previous medical records and nursing notes reviewed. Significant findings include a wet mount consistent with bacterial vaginosis. Patient had an extremely difficult time with exam. Patient would not allow speculum exam. Swabs were obtained without speculum insertion. Patient reports that she has never had a pelvic exam, she has never been sexually active. Breast exam was performed and without mass, induration, fluctuance or erythema. Patient was provided her first dose of Flagyl in the department and discharged home with prescription for Flagyl. Patient provided the opportunity to ask questions, and express concerns. Discharge instructions discussed. Patient is agreeable with discharge home. Return indications explained and discussed with the patient who displays understanding. Patient encouraged to return to the emergency department immediately with any concerns. - Vital Signs Vital signs: Temp Pulse Resp BP Pulse Ox 98.8 F 80 18 126/84 H 100 10/05/17 20:37 10/05/17 20:37 10/05/17 20:37 10/05/17 20:37 10/05/17 20:37 - Laboratory Laboratory results interpreted by me: 10/05/17 16:00 Urine Urobilinogen 2.0 H Discharge - Discharge Clinical Impression: Bacterial vaginosis, Vaginal pain, Breast pain Condition: Good Disposition: HOME, SELF-CARE Instructions: Vaginosis, Bacterial ([facility]) Additional Instructions: Follow up with your physician tomorrow for further care or return to the ED IMMEDIATELY if symptoms worsen or new concerns occur. If you cannot afford to follow up with your primary care physician a list of low cost clinics have been provided at the end of your discharge papers as well. Prescriptions: Metronidazole [Flagyl 500 mg Tablet] 500 mg PO BID 7 Days #14 tablet Forms: Return to Work
[2017-10-05] MEDS ORDERED: IBUPROFEN 600 MG TABLET PO ONE (19:57)
[2017-10-05] MEDS ORDERED: FLUCONAZOLE 100 MG TABLET PO ONE (19:57)
[2017-10-05 20:15] LABS: RBCS (WET MOUNT) FEW RBCS SEEN; T.VAGINALIS (WET MOUNT) NO TRICHOMONAS SEEN; WBCS (WET MOUNT) 1+ WBCS SEEN; YEAST (WET MOUNT) YEAST SEEN
[2017-10-05 20:16] LABS: BACTERIA (WET MOUNT) 3+ BACTERIA SEEN; EPITHELIALS (WET MOUNT) 3+ EPITHELIALS SEEN
[2017-10-05] MEDS ORDERED: METRONIDAZOLE 500 MG TABLET PO ONE (20:19)
[2017-10-05 20:38] VITALS: BP 126/84
[2017-10-05 22:30] LABS: CHLAM PCR NOT DETECTED (NOT DETECT); GON PCR NOT DETECTED (NOT DETECT)
== END 2017-10-05 20:35 | disposition home or self-care (01) ==
LOC: ER 14:08
DX: N76.0 Acute vaginitis (principal); B96.89 Other specified bacterial agents as the cause of diseases classified elsewhere; N64.4 Mastodynia; R10.2 Pelvic and perineal pain
CPT/HCPCS: 81001; 81025; 87086; 87210; 87491; 87591; 99283

== ENCOUNTER → 2019-10-23 | Outpatient (CLI) | payer BC ==
[2019-10-23 10:21] VITALS: BP 132/69
--- NOTE | 2019-10-23 10:21 | ER RDC ASSESSMENT REPORT ---
Intake - In the Last 14 days Have you traveled outside [place]?: No Have you been in close contact with someone CONFIRMED: No Worked in Healthcare?: No - Symptoms Subjective Fever([place] feverish): Yes Chills: Yes Muscule Aches: Yes Runny Nose: Yes Sore Throat: Yes Cough (New or worsening chronic cough): Yes Shortness of breath: Yes Nausea or Vomiting: Yes Headache: Yes Abdominal Pain: Yes Diarrhea(3 or more loose stools in last 24 hours): No - Do you have any of the following Cystic Fibrosis: No Diabetes: No High Blood Pressure: No Cardiovascular Disease: No Chronic Kidney Disease: No Chronic Liver Disease: No Chronic blood disorder like Sickle Cell Disease: No Weak immune system due to disease or medication: No Neurologic condition that limits movement: No Developmental delay - Moderate to Severe: No Recent (within past 2 weeks) or current : No Morbid Obesity (>100 pounds over ideal weight): No Obesity Comment: Height 5 feet 4 inches weight 228 pounds Other Comment: Denies medical history does report has a history of anxiety and depression which she takes Effexor Lamictal and another medicine for sleep but does not remember the name begins with an S - Objective Temperature: 96.8 F Pulse Rate: 104 Respiratory Rate: 20 Blood Pressure: 132/69 O2 Sat by Pulse Oximetry: 98 Objective: Given above, testing performed: If Testing Performed: Test Specimen Type Sent to General - General Information source: Patient Notes: Patient here at [facility] for COVID testing states started to have respiratory and flulike symptoms on Tuesday. Reports friend was tested and pending test because friends mother was tested positive last in contact with friend 2 weeks ago. Does not have a local PCP just a psychiatrist and therapist. She reports wears a mask when out in public. - Related Data Allergies/Adverse Reactions: No Known Allergies Allergy (Verified 10/05/17 14:14) Past Medical History - Social History Smoking Status: Current Some Day Smoker Cigarette use (# per day): Yes - Not smoke cigarettes smokes marijuana once a month Family History: Reviewed & Not Pertinent Renal/ Medical History: Denies: Hx Peritoneal Dialysis Skin Medical History: Reports Hx Cellulitis Psychiatric Medical History: Reports: Hx Bipolar Disorder, Hx Depression Physical Exam - General General appearance: Appears well, Alert In distress: None Notes: PHYSICAL EXAMINATION: GENERAL: Well-appearing and in no acute distress. HEAD: Atraumatic, normocephalic. EYES: sclera anicteric, conjunctiva are normal. ENT: nares patent. Moist mucous membranes. NECK: Normal range of motion, supple without lymphadenopathy LUNGS: CTAB and equal. No wheezes rales or rhonchi. Resp even and unlabored. lung sounds clear. Dry cough noted with deep inhalation HEART: Regular rate and rhythm without murmurs ABDOMEN: Soft, nontender, normal bowel sounds, no guarding. EXTREMITIES: No cyanosis. NEUROLOGICAL: Normal speech. PSYCH: Normal mood, normal affect. SKIN: Warm, Dry, normal turgor, Diagnostic Results Laboratory Results: Patient informed of negative rapid strep and negative rapid flu results. pending strep culture pending COVID testing results. Patient provided instructions regarding COVID to include: As a person under investigation for Covid 19, the [facility], division of public health advises you to adhere to the following guidance until your test results are reported to you. If your test result is positive, you will receive additional information from your provider and your local health department at that time. Remain at home until you are cleared by the health provider or public health authorities. Keep a log of visitors to your home, notify any visitors to your home of your isolation status. If you plan to move to a new address or leave the county, notify the local health department in your [facility]. Call your doctor or seek care if you have an urgent medical need. Before seeking medical care, call ahead to get instructions from the provider before arriving at the medical office clinic or hospital. Notify them that you are being tested for the virus that causes Covid 19 so that arrangements can be made, as necessary, to prevent transmission to others in the healthcare setting. Next, notify the local health department in your county. If a medical emergency arises and you need to call 911, inform the first responders that you are being tested for the virus that causes Covid 19. Next, notify the local health department in your county. Patient Education/Counseling Counseling/Education: Patient presents with upper respiratory symptoms worrisome for possible Covid 19. Patient does not have emergency worring symptoms such as difficulty breathing, shortness of breath, chest pain, pressure, confusion or cyanosis. Patient appears suitable for discharge. Patient instructed to follow up with urgent care or to ED for persistent or worsening symptoms. Patient's vital signs are stable and patient is nontoxic in appearance. Good return precautions have been discussed with patient, patient verbalized understanding and is agreeable with discharge plan of care at this time. RDC Discharge - Discharge Clinical Impression: COVID - 19 SCREENING Condition: Stable Disposition: Home; Selfcare
[2019-10-23 10:43] LABS: A TYPE INFLUENZA AG NEGATIVE (NEGATIVE); B INFLUENZA AG NEGATIVE (NEGATIVE)
== END ==
LOC: RDC 09:27
PROVIDERS: ATTEND Nurse Practitioner Family
DX: Z20.828 Contact with and (suspected) exposure to other viral communicable diseases (principal)
CPT/HCPCS: 87070; 87880; 87635; 87804; 99201; 99211; C9803; 36415; 87077

== ENCOUNTER 2019-12-07 13:54 | Emergency (ER) | payer BC ==
[2019-12-07 14:31] VITALS: BP 125/76
--- NOTE | 2019-12-07 16:04 | ER Document Report ---
HPI - HPI Time Seen by Provider: 12/07/19 15:53 Pain Level: 4 Notes: 24-year-old female presents emergency room with complaints of lower back pain that has been bothering her for the last month, she was seen by her primary care provider [facility] and was given naproxen for back pain. She states that this made her feel nauseous so she stopped taking it. Patient states today that she was putting together a cat tower for her cats, and she fell forward and strained her right lower back even more. Has never had any diagnostic imaging. Reports her last menstrual cycle was November 23, 2011. Denies fevers, chills, chest pain,palpitations, shortness of breath, dyspnea, nausea, vomiting, diarrhea, abdominal pain, hematuria,blurred vision, double vision, loss of vision, speech changes, LH, dizziness, syncope, headaches, wheezing, ST, URI, neck pain, weakness, bowel or bladder dysfunction, saddle anesthesia, numbness or tingling in bilateral upper or lower extremities equally, muscle paralysis, weakness in bilateral upper or lower extremities equally or rash. Denies IV drug use. MEDICATIONS: I agree with the patient medications as charted by the RN. ALLERGIES: I agree with the allergies as charted by the RN. PAST MEDICAL HISTORY/PAST SURGICAL HISTORY: Reviewed and agree as charted by RN. SOCIAL HISTORY: Reviewed and agree as charted by RN. FAMILY HISTORY: No significant familial comorbid conditions directly related to patient complaint EXAM: Reviewed vital signs as charted by RN. REVIEW OF SYSTEMS:reviewed vital signs by RN CONSTITUTIONAL : Denies fever, chills, or sweats. Denies recent illness. EENT: Denies eye, ear, throat, or mouth pain or symptoms. Denies nasal or sinus congestion or discharge. Denies throat, tongue, or mouth swelling or difficulty swallowing. CARDIOVASCULAR: Denies chest pain. Denies palpitations or racing or irregular heart beat. Denies ankle edema. RESPIRATORY: Denies cough, cold, or chest congestion. Denies shortness of breath, difficulty breathing, or wheezing. GASTROINTESTINAL: Denies abdominal pain or distention. Denies nausea, vomiting, or diarrhea. Denies blood in vomitus, stools, or per rectum. Denies black, tarry stools. Denies constipation. GENITOURINARY: Denies difficulty urinating, painful urination, burning, frequency, blood in urine, or discharge. FEMALE GENITOURINARY: Denies vaginal bleeding, heavy or abnormal periods, irregular periods. Denies vaginal discharge or odor. MUSCULOSKELETAL: Reports lower back pain, denies back or neck pain or stiffness. Denies joint pain or swelling. SKIN: Denies rash, lesions or sores. HEMATOLOGIC : Denies easy bruising or bleeding. LYMPHATIC: Denies swollen, enlarged glands. NEUROLOGICAL: Denies confusion or altered mental status. Denies passing out or loss of consciousness. Denies dizziness or lightheadedness. Denies headache. Denies weakness or paralysis or loss of use of either side. Denies problems with gait or speech. Denies sensory loss, numbness, or tingling. Denies seizures. PSYCHIATRIC: Denies anxiety or stress. Denies depression, suicidal ideation, or homicidal ideation. ALL OTHER SYSTEMS REVIEWED AND NEGATIVE. PHYSICAL EXAMINATION: GENERAL: Well-appearing, well-nourished and in no acute distress. HEAD: Atraumatic, normocephalic. EYES: Pupils equal round and reactive to light, extraocular movements intact, conjunctiva are normal. ENT: Nares patent, oropharynx clear without exudates. Moist mucous membranes. NECK: Normal range of motion, supple without lymphadenopathy LUNGS: Breath sounds clear to auscultation bilaterally and equal. No wheezes rales or rhonchi. HEART: Regular rate and rhythm without murmurs ABDOMEN: Soft, nontender, nondistended abdomen. No guarding, no rebound. No masses appreciated. Female : deferred Musculoskeletal: Normal range of motion, no pitting or edema. No cyanosis. Pain with flexion and extension at 30 degrees, positive straight leg test on left. Normal hip rotation. DTR +2 in BLE equally. Strength 5 out of 5 both distally and proximally to bilateral lower extremities normal motor and sensory function in BLE equally. Distal pulses + 2 BLE equally. Noted paraspinal tenderness near L2 and L3. Strength 5 out of 5 in bilateral lower extremities equally. no spinal tenderness. No CVA tenderness bilaterally. Femoral pulses + 2 bilaterally and equally. No abrasions, scars, lacerations, ecchymosis of any recent trauma. normal gait. NEUROLOGICAL: Cranial nerves grossly intact. Normal speech, normal gait. Normal sensory, motor exams PSYCH: Normal mood, normal affect. SKIN: Warm, Dry, normal turgor, no rashes or lesions noted. Dictation was performed using [employer] voice recognition software - REPRODUCTIVE Reproductive: DENIES: : Past Medical History - General Information source: Patient - Social History Smoking Status: Never Smoker Frequency of alcohol use: None Drug Abuse: Marijuana Family History: Reviewed & Not Pertinent Renal/ Medical History: Denies: Hx Peritoneal Dialysis Skin Medical History: Reports Hx Cellulitis Psychiatric Medical History: Reports: Hx Bipolar Disorder, Hx Depression Vertical Provider Document - CONSTITUTIONAL Agree With Documented VS: Yes Exam Limitations: No Limitations General Appearance: WD/WN - INFECTION CONTROL TRAVEL OUTSIDE OF THE [place] IN LAST 30 DAYS: No Course - Re-evaluation Re-evalutation: 12/07/19 16:01 Afebrile vital stable no distress. Nurses notes reviewed. X-ray lumbar spine shows Advised to take muscle relaxers and meloxicam as directed. Apply heat 20 minutes on 20 minutes off several times a day. Follow-up with internet security specialist and primary care provider in the next 24 to [address], drink or operate machinery while taking medication because sedation or impairment of cognitive function. After performing a Medical Screening Examination, I estimate there is LOW risk for EXPANDING OR RUPTURED ABDOMINAL AORTIC ANEURYSM, CAUDA EQUINA SYNDROME, EPIDURAL MASS ABSCESS OR LESION(S), OSTEOMYELITIS,PERSONAL HISTORY OF CANCER, IMMUNOSUPPERSSSION, HISTORY OF IV DRUG USE, FRACTURE, CORD COMPERSSION, CANCER, RETROPERITONEAL BLEED, SPINAL EPIDURAL HEMATOMA, or HERNIATED DISK CAUSING SEVERE SPINAL STENOSIS, thus I consider the discharge disposition reasonable. I have reevaluated this patient multiple times and no significant life threatening changes are noted. The patient and I have discussed the diagnosis and risks, and we agree with discharging home and close follow-up. We also discussed returning to the Emergency Department immediately if new or worsening symptoms occur with the understanding that symptoms and presentations can change. We have discussed the symptoms which are most concerning (e.g., saddle anesthesia, urinary or bowel incontinence or retention, changing or worsening pain) that necessitate immediate return. - Vital Signs Vital signs: Temp Pulse Resp BP Pulse Ox 98.9 F 98 18 125/76 98 12/07/19 14:21 12/07/19 14:21 12/07/19 14:21 12/07/19 14:21 12/07/19 14:21 Discharge - Discharge Clinical Impression: Lower back pain Condition: Stable Disposition: HOME, SELF-CARE Instructions: Muscle Strain ([facility]), Low Back Pain ([facility]), Warm Packs ([facility]), Stretching Exercises for the Back ([facility]), Muscle Relaxers ([facility]) Additional Instructions: Your x-ray today is negative for any acute fracture. Please apply heat 20 minutes on 20 minutes off several times a day, do back stretches, take meloxicam as needed for your back as is anti-inflammatory, take muscle relaxers as needed, do not drive, drink or operate machinery or take medication because sedation impairment cognitive function. Please follow-up with internet security specialist and primary care provider in the next 24 to 48 hours as needed. Return immediately for any new or worsening symptoms. Follow up with primary care provider, call tomorrow to make followup appointment. Prescriptions: Meloxicam [Mobic] 7.5 mg PO DAILY #7 tablet Methocarbamol [Robaxin 500 mg Tablet] 500 mg PO QID PRN #15 tablet PRN Reason: Forms: Return to Work Referrals: LAVINIA MARY MD [ACTIVE STAFF] - Follow up as needed MANNY YANEZ MD [ACTIVE STAFF] - Follow up as needed
--- NOTE | 2019-12-07 16:32 | RADIOLOGY REPORT (SQ) ---
EXAM DESCRIPTION: L SPINE WHOLE IMAGES COMPLETED DATE/TIME: 12/07/2019 4:24 pm REASON FOR STUDY: lbp pain x 1 month, unsure if she fell on it COMPARISON: None. NUMBER OF VIEWS: Five views including obliques. TECHNIQUE: AP, lateral, oblique, and sacral radiographic images acquired of the lumbar spine. LIMITATIONS: None. FINDINGS: MINERALIZATION: Normal. SEGMENTATION: Normal. No transitional anatomy. ALIGNMENT: Normal. VERTEBRAE: Maintained height. No fracture or worrisome bone lesion. DISCS: Preserved height. No significant osteophytes or end plate irregularity. POSTERIOR ELEMENTS: Pedicles and facets are intact. No pars defect or posterior arch defects. HARDWARE: None in the spine. PARASPINAL SOFT TISSUES: Normal. PELVIS: Intact as visualized. No fractures or worrisome bone lesions. SI joints intact. OTHER: No other significant finding. IMPRESSION: NORMAL 5 VIEW LUMBAR SPINE. TECHNICAL DOCUMENTATION: JOB ID: [id number] 2010 [employer]- All Rights Reserved Reading location - IP/workstation name: [email or web address]
== END 2019-12-07 17:02 | disposition home or self-care (01) ==
LOC: ER 13:54
DX: M54.5 Low back pain (principal)
CPT/HCPCS: 72110; 99283